=== PATIENT | male | born 1970 | race African-American/Black ===

== ENCOUNTER 2019-11-13 12:12 | Emergency (ER) | payer OTHER ==
[~2019-11-13] VITALS: Ht 177.8 cm; Wt 120.2 kg
[2019-11-13 12:13] VITALS: BP 175/93
[2019-11-13] MEDS ORDERED: CYCLOBENZAPRINE5 MG PO (12:40)
[2019-11-13] MEDS ORDERED: NORCO 7.5-3251 EACH PO (12:40)
[2019-11-13] MEDS ORDERED: MEDROLDOSEPACK PO (12:40)
== END 2019-11-13 12:57 | disposition home or self-care (01) ==
LOC: ER 12:12
DX: M54.42 Lumbago with sciatica, left side (principal); F17.210 Nicotine dependence, cigarettes, uncomplicated

== ENCOUNTER 2020-01-06 17:58 | Emergency (ER) | payer OTHER ==
[~2020-01-06] VITALS: Ht 167.6 cm; Wt 120.2 kg
[~2020-01-06 17:58] MED LIST: CYCLOBENZAPRINE5 MG PO; MEDROLDOSEPACK PO; NORCO 7.5-3251 EACH PO
[2020-01-06 18:04] VITALS: BP 144/96
[2020-01-06] MEDS ORDERED: NORFLEX100 MG PO (20:13)
[2020-01-06] MEDS ORDERED: IBUPROFEN 600600 M1 PO (20:13)
== END 2020-01-06 20:21 | disposition home or self-care (01) ==
LOC: ER 17:58
DX: S46.812A Strain of other muscles, fascia and tendons at shoulder and upper arm level, left arm, initial encounter (principal); S39.012A Strain of muscle, fascia and tendon of lower back, initial encounter; S29.012A Strain of muscle and tendon of back wall of thorax, initial encounter; M54.2 Cervicalgia; F17.210 Nicotine dependence, cigarettes, uncomplicated; V49.59XA Passenger injured in collision with other motor vehicles in traffic accident, initial encounter; Y93.89 Activity, other specified; Y92.89 Other specified places as the place of occurrence of the external cause; Y99.8 Other external cause status

== ENCOUNTER 2020-07-30 12:44 | Emergency (ER) | payer OTHER ==
[~2020-07-30] VITALS: Ht 165.1 cm; Wt 111.1 kg
[~2020-07-30 12:44] MED LIST changes: +IBUPROFEN 600600 M1 PO; +NORFLEX100 MG PO
[2020-07-30 13:30] LABS: URINE BILIRUBIN NEGATIVE (Negative); URINE BLOOD TRACE (Negative); URINE CLARITY CLEAR; URINE COLOR YELLOW; URINE GLUCOSE-RANDOM* NEGATIVE (Negative); URINE KETONES NEGATIVE (Negative); URINE LEUKOCYTES-REFLEX NEGATIVE (Negative); URINE NITRITE-REFLEX NEGATIVE (Negative); URINE PROTEIN (DIPSTICK) 2+ (Negative); URINE SPECIFIC GRAVITY >= 1.030 (1.005-1.035); URINE UROBILINOGEN 0.2 E.U./dl (0.2-1.0)
[2020-07-30 13:36] LABS: AMP/METHAMP Negative (Negative); BARBITURATES Negative (Negative); BENZODIAZEPINES Negative (Negative); COCAINE POSITIVE (Negative); METHADONE Negative (Negative); OPIATES Negative (Negative); PCP Negative (Negative)
[2020-07-30 13:38] LABS: BACTERIA-REFLEX 1-9 Few /HPF (None Seen); CASTS None Seen /LPF (None Seen); CRYSTALS None Seen /LPF (None Seen); SQUAMOUS 0-3 Few /LPF (0-3); URINE RBC 3-10 Few /HPF (0-2); URINE WBC-REFLEX 0-5 Rare /HPF (0-5)
[2020-07-30 14:22] LABS: ABSOLUTE NEUTROPHILS 3.2 thou/uL (1.4-8.2); EOSINOPHILS 5.5 % (0.0-3.0); HEMATOCRIT 42.8 % (42.0-52.0); HEMOGLOBIN 14.6 gm/dL (14.0-18.0); LYMPHOCYTES 30.3 % (24.0-44.0); MCH 33.2 pg (26.0-34.0); MCHC 34.2 g/dL (28.0-37.0); MCV 97.2 fL (80.0-100.0); MONOCYTES 9.1 % (1.0-8.0); PLATELET COUNT 239 thou/uL (150-400); POLYS 54.1 % (36.0-66.0); RBC 4.41 mil/uL (4.50-6.00); RDW 13.5 % (10.5-14.5); WBC 5.9 thou/uL (4.0-11.0)
[2020-07-30 14:30] LABS: ANION GAP 10 mmol/L (7-16); BUN 20 mg/dL (7-18); CALCIUM 8.9 mg/dL (8.5-10.1); CHLORIDE 106 mmol/L (98-107); CO2 27 mmol/L (21-32); CREATININE 1.4 mg/dL (0.7-1.3); GLUCOSE 97 mg/dL (74-106); POTASSIUM 3.8 mmol/L (3.5-5.1); SODIUM 143 mmol/L (136-145)
[2020-07-30 14:40] LABS: ALBUMIN 3.8 g/dL (3.4-5.0); LIPASE 112 U/L (73-393); SGOT 35 U/L (15-37); SGPT 33 U/L (30-65); TOTAL BILIRUBIN 0.3 mg/dL (0.2-1.0); TOTAL PROTEIN 7.9 g/dL (6.4-8.2); TROPONIN-I <0.06 ng/mL (<0.06)
--- NOTE | 2020-07-30 15:36 | EKG ---
[facility] [place] [address] ELECTROCARDIOGRAM REPORT Name: PAIGE LEWIS Room #: REG [facility].#: [id number] Admission: 07/30/20 Attend Phys: Discharge: Date of : 68 Report #: [id number] THIS REPORT FOR: cc: MIGUEL Carvalho family physician/PCP MIGUEL Carvalho family physician/PCP Leon Martinez MD [facility] ~ THIS REPORT FOR: //name// [facility] ED Test Date: 2020-07-30 Test Time: 13:17:36 Pat Name: PAIGE LEWIS Department: Room: Gender: M [employer]: [facility] : 1970 Requested By: Zakiya Rehman Order Number: [id number] MD: Leon Martinez Measurements Intervals [place] Rate: 71 P: 46 [place]: 157 QRS: -20 QRSD: 95 T: 18 QT: 378 QTc: 411 Interpretive Statements Sinus arrhythmia Borderline left axis deviation No previous ECG available for comparison Electronically Signed On 07-30-2020 15:35:56 CDT by Leon Martinez [email or web address] <ELECTRONICALLY SIGNED> By: Leon Martinez MD, FACC 07/30/20 1535 1317 1317 Leon Martinez MD, FACC /EPI
[2020-07-30] MEDS ORDERED: ZOFRAN ODT4 MG PO (16:12)
[2020-07-30 16:30] VITALS: BP 122/75
== END 2020-07-30 16:30 | disposition home or self-care (01) ==
LOC: ER 12:44
PROVIDERS: Physician Assistant
DX: S50.811A Abrasion of right forearm, initial encounter (principal); R11.2 Nausea with vomiting, unspecified; R31.9 Hematuria, unspecified; R80.9 Proteinuria, unspecified; G93.0 Cerebral cysts; F19.90 Other psychoactive substance use, unspecified, uncomplicated; N18.9 Chronic kidney disease, unspecified; F17.210 Nicotine dependence, cigarettes, uncomplicated; W18.39XA Other fall on same level, initial encounter; Y93.89 Activity, other specified; Y92.89 Other specified places as the place of occurrence of the external cause; Y99.8 Other external cause status